=== PATIENT | female | born 1995 | race Caucasian/White ===

== ENCOUNTER 2019-11-02 15:40 | Outpatient (CLI) | payer OTHER, SELFPAY | END 2019-11-02 15:41 | disposition home or self-care (01) | LOC: CHSLAB 15:42 | PROVIDERS: PCP Family Medicine; Visit Provider Family Medicine | DX: J02.9 Acute pharyngitis, unspecified (principal) | CPT/HCPCS: 87081; 87880 ==

== ENCOUNTER 2020-08-23 12:47 | Emergency (ER) | payer OTHER, SELFPAY ==
[2020-08-23 12:50] VITALS: BP 120/76; PULSE 85; RESP 14; TEMP 36.6; O2SAT 100
--- NOTE | 2020-08-23 12:53 | ED.WOUNDLAC ---
HPI - Wound/Laceration General Chief Complaint: Wound/Laceration Stated Complaint: cut finger at work Time Seen by Provider: 08/23/20 13:21 Source: patient Mode of arrival: ambulatory Limitations: no limitations History of Present Illness HPI narrative: 25-year-old right-handed woman comes in today complaining of a laceration to her left pinky finger. She states that happened this morning while she was at work. She was opening boxes with a box knife and slipped, cutting her finger. She denies numbness and decreased range of motion. She does not recall her last tetanus shot. Onset (ago): minute(s) (30) Extremity Location: Left: hand Place: work Patient tetanus UTD: No Context: accidental Associated symptoms: pain Treatments prior to arrival: bandage Related Data Home Medications Medication Instructions Recorded Confirmed benzonatate 200 mg PO TID 08/23/20 08/23/20 buspirone 10 mg PO BID 08/23/20 08/23/20 clotrimazole 1 applic TOPICAL TID 08/23/20 08/23/20 divalproex 500 mg PO BID 08/23/20 08/23/20 famotidine 40 mg PO DAILY 08/23/20 08/23/20 ibuprofen 600 mg PO Q6H PRN 08/23/20 08/23/20 medroxyprogesterone [Depo-Provera] 150 mg IM [id number] 08/23/20 08/23/20 valacyclovir 1,000 mg PO TID 08/23/20 08/23/20 venlafaxine 225 mg PO DAILY 08/23/20 08/23/20 Allergies Allergy/AdvReac Type Severity Reaction Status Date / Time No Known Allergies Allergy Unverified 01/09/18 23:07 Review of Systems Review of Systems: All systems reviewed & are unremarkable except as noted in HPI and below Cardiovascular: Cardiovascular: Denies chest pain and Denies radiating jaw, neck or arm pain Respiratory: Respiratory: Denies cough and Denies dyspnea Gastrointestinal: Gastrointestinal: Denies nausea and Denies vomiting Musculoskeletal: Musculoskeletal: Denies arthralgias and Denies joint swelling Integumentary/Breasts: Skin/Breast: Reports as per HPI, Denies pruritus, Denies erythema and Denies rash Neurologic: Denies focal weakness and Denies numbness Psychiatric: Psychiatric: Reports anxiety Hematologic/Lymphatic: Hematologic/Lymphatic: Denies easy bleeding and Denies easy bruising [facility] Past Medical History Medical History (Updated 08/23/20 @ 19:13 by Yves Hahn MD) Anxiety GERD (gastroesophageal reflux disease) Social History Social History Smoking status: Never smoker Alcohol intake: never Substance use: never Living arrangements: with family Exam Const: General: alert Orientation/consciousness: patient oriented x3 Other: mildly anxious. Eyes: Conjunctivae: conjunctivae normal Pupils: Equal, round and reactive pupils present EOM: EOMs intact bilaterally Resp: Effort & Inspection: normal respiratory effort and not labored Auscultation: clear to auscultation bilaterally, no rales, no rhonchi and no wheezes Cardio: Rate: regular rate Rhythm: regular rhythm Heart sounds: no murmurs Skin: General skin exam: normal color, no jaundice and no pallor Rashes: no rashes Other: 2 cm longitudinal laceration on the pad of the left pinky finger distal to the DIP. Neuro: General: patient oriented x3, moves all extremities, no focal motor deficits and CN's II-XI intact bilaterally Speech: normal speech Gait exam (Neuro): Normal gait present Extrem: General: normal to inspection and no clubbing, cyanosis or edema Psych: Appearance: grossly normal and well kempt Mental Status: mental status grossly normal Affect: normal affect Attitude: cooperative Thought content: Yes Normal thought content present Course Vital Signs Vital signs: Vital Signs Temperature 36.6 C 08/23/20 12:50 Pulse Rate 85 08/23/20 12:50 Respiratory Rate 14 08/23/20 12:50 Blood Pressure 120/76 08/23/20 12:50 Pulse Oximetry 100 08/23/20 12:50 Temperature 36.6 C 08/23/20 12:50 Pulse Rate 85 08/23/20 12:50 Respiratory Rate 14 08/23/20 14:12
[2020-08-23 14:12] VITALS: RESP 14; O2SAT 100
== END 2020-08-23 14:13 | disposition home or self-care (01) ==
PROVIDERS: Emergency Provider Emergency Medicine; PCP Family Medicine
DX: S61.217A Laceration without foreign body of left little finger without damage to nail, initial encounter (principal); W26.0XXA Contact with knife, initial encounter
CPT/HCPCS: 12001; 99282

== ENCOUNTER 2021-04-28 16:10 | Emergency (ER) | payer SELFPAY ==
--- NOTE | 2021-04-28 16:16 | ED.NAVMDI ---
HPI - Nausea/Vomiting/Diarrhea General Chief complaint: Nausea/Vomiting/Diarrhea Stated complaint: Diarrhea, throwing up Time Seen by Provider: 04/28/21 16:16 Source: patient and RN notes reviewed History of Present Illness HPI Narrative: Patient is a 25-year-old female who presents the urgent care with complaints of vomiting, diarrhea and nausea since 2 AM. Patient denies any use of [id number] medication for her symptoms. States that she has been vomiting and having loose stools approximately every hour. States that she now has some lower abdominal discomfort. States that she has been increasing her water intake which is caused her to have increased urination/frequency. However denies of any dysuria, hematuria. Patient states that she does not use control however does use condoms. States that her last menstrual cycle was March 23. Patient has not had any history of . No other acute complaints. No acute distress noted. Patient aware of the plan of care. Some parts of this dictation were generated by voice recognition software and may contain typographical and/or grammatical inaccuracies. Related Data Home Medications Medication Instructions Recorded Confirmed divalproex 500 mg PO DAILY 04/28/21 04/28/21 famotidine 40 mg PO DAILY 04/28/21 04/28/21 Allergies Allergy/AdvReac Type Severity Reaction Status Date / Time No Known Allergies Allergy Verified 04/28/21 16:31 Review of Systems Review of Systems: CONSTITUTIONAL: Denies fever, chills, or sweats. EYES: Denies visual changes, redness, or discharge. ENT: Denies rhinorrhea, congestion, sore throat, or otalgia. CARDIOVASCULAR: Denies chest pain, palpitations, or edema. RESPIRATORY: Denies cough or dyspnea. GASTROINTESTINAL: Reports of mild lower abdominal pain, nausea, vomiting and diarrhea GENITOURINARY: Denies dysuria or hematuria. SKIN: Denies rash or itching. MUSCULOSKELETAL: Denies back pain, joint pain, or myalgia. NEUROLOGIC: Denies headache, numbness, or weakness. All other systems reviewed are negative, except as documented in HPI. PMFSH Comments At the time of my signature, I reviewed and agree with the nursing past medical, surgical, social, and family history. There is no relevant family history pertinent to the patient complaint. Exam Narrative: GENERAL: This is a well-nourished, well-developed patient, in no apparent distress. HEAD: normocephalic, atraumatic. EYES: PERRL. Sclera clear/white. Vision is grossly intact. EARS: External ears normal NOSE: External nose normal with no obvious nasal discharge, nares without redness, no rhinorrhea. THROAT: Mucous membranes moist NECK: Neck supple CARDIOVASCULAR: Regular rate and rhythm without murmurs, gallops, or rubs. RESPIRATORY: Clear to auscultation. Breath sounds equal bilaterally. No wheezes, rales, or rhonchi. GASTROINTESTINAL: Abdomen soft, mild suprapubic tenderness, nondistended. Bowel sounds are hypo-active. SKIN: warm, intact with no suspicious lesions or rash, good texture and turgor. NEURO: awake, alert, and oriented to person, place and time. There were no obvious focal neurologic abnormalities. EXTREMITIES: No clubbing, cyanosis, or edema. BACK: Negative CVA tenderness Course Course Level of Care: Express Care Visit Vital Signs Vital signs: Vital Signs Temperature 99.2 F 04/28/21 16:33 Pulse Rate 94 04/28/21 16:33 Respiratory Rate 16 04/28/21 16:33 Blood Pressure 110/68 04/28/21 16:33 Pulse Oximetry 98 04/28/21 16:33 Temperature 99.2 F 04/28/21 16:33 Pulse Rate 94 04/28/21 16:33 Respiratory Rate 16 04/28/21 16:33 Blood Pressure 110/68 04/28/21 16:33 Pulse Oximetry 98 04/28/21 16:33 Reviewed MDM - Nausea/Vomiting/Diarrhea MDM Narrative Medical decision making narrative: Reviewed lab results with the patient. Patient is aware that she is and the urine analysis was negative for a urinary tract infection. Advised
[2021-04-28 16:33] VITALS: BP 110/68; PULSE 94; RESP 16; TEMP 37.3; O2SAT 98
== END 2021-04-28 17:09 | disposition home or self-care (01) ==
PROVIDERS: Emergency Provider Nurse Practitioner Family; PCP Family Medicine
DX: Z32.01 Encounter for pregnancy test, result positive (principal); O99.350 Diseases of the nervous system complicating pregnancy, unspecified trimester; Z3A.00 Weeks of gestation of pregnancy not specified; G40.909 Epilepsy, unspecified, not intractable, without status epilepticus
CPT/HCPCS: 81003; 81025; 99212; 99213; G0463

== ENCOUNTER 2021-05-30 10:46 | Outpatient (CLI) | payer OTHER, SELFPAY ==
[2021-05-30 11:23] LABS: Basophils Percent Auto 0.4 % (0.2-1.2); Eosinophils Absolute Auto 0.1 K/mm3 (0-0.3); Eosinophils Percent Auto 0.9 % (0-4.4); Hemoglobin 12.4 g/dL (12.0-15.0); Immature Granulocyte Absolute 0.06 K/mm3 (0.00-0.031); Immature Granulocyte Percent A 0.8 % (0-0.5); Lymphocytes Percent Auto 22.1 % (18.3-44.2); Mean Corpuscular HGB Conc 33.5 g/dl (32-36); Mean Corpuscular Hemoglobin 30.8 pg (26-34); Mean Platelet Volume 10.3 fl (7.4-10.4); Monocytes Absolute Auto 0.4 K/mm3 (0.1-0.6); Monocytes Percent Auto 5.2 % (2.6-8.5); Neutrophils Absolute Auto 5.4 K/mm3 (1.3-6.7); Neutrophils Percent Auto 70.6 % (45.5-73.1); Platelet Count Result 185 k/mm3 (150-375); Red Blood Count 4.02 M/mm3 (4.2-5.4); Red Cell Distribution Width 12.7 % (11.5-14.5); White Blood Count 7.7 K/mm3 (4.5-10.0)
[2021-05-30 12:17] LABS: HIV 1/2 Ab P24 Ag Result Negative (Negative)
[2021-05-30 12:41] LABS: Hepatitis B Surface Antigen Negative (Negative); Rubella IgG Antibody 38.2 IU/ML
[2021-05-31 07:54] LABS: Rapid Plasma Reagin Non-Reactive (NonReactive)
[2021-06-06 20:46] LABS: SMA 2.0 RISK VARIANT NOT DETECTED
[2021-06-09 12:46] LABS: CF Result NEGATIVE (NEGATIVE)
== END 2021-05-30 10:47 | disposition home or self-care (01) ==
LOC: ANHLAB 10:48
PROVIDERS: PCP Family Medicine; Visit Provider Obstetrics & Gynecology
DX: N94.89 Other specified conditions associated with female genital organs and menstrual cycle (principal)
CPT/HCPCS: 36415; 81220; 81329; 84702; 85025; 86592; 86644; 86703; 86747; 86762; 86787; 86850; 86900; 86901; 87086; 87088; 87340; G0432

== ENCOUNTER 2021-10-13 13:58 | Outpatient (CLI) | payer OTHER, SELFPAY ==
[2021-10-13 14:16] LABS: Basophils Absolute Auto 0.1 K/mm3 (0.0-0.1); Basophils Percent Auto 0.4 % (0.2-1.2); Eosinophils Absolute Auto 0.1 K/mm3 (0-0.3); Hematocrit 35.1 % (37.0-47.0); Hemoglobin 11.5 g/dL (12.0-15.0); Immature Granulocyte Absolute 0.13 K/mm3 (0.00-0.031); Immature Granulocyte Percent A 0.9 % (0-0.5); Lymphocytes Absolute Auto 2.02 K/mm3 (0.9-3.2); Lymphocytes Percent Auto 14.3 % (18.3-44.2); Mean Corpuscular HGB Conc 32.8 g/dl (32-36); Mean Corpuscular Hemoglobin 30.6 pg (26-34); Mean Corpuscular Volume 93.4 fl (80-100); Mean Platelet Volume 10.1 fl (7.4-10.4); Monocytes Absolute Auto 0.9 K/mm3 (0.1-0.6); Monocytes Percent Auto 6.4 % (2.6-8.5); Neutrophils Absolute Auto 10.9 K/mm3 (1.3-6.7); Platelet Count Result 197 k/mm3 (150-375); Red Blood Count 3.76 M/mm3 (4.2-5.4); Red Cell Distribution Width 13.4 % (11.5-14.5); White Blood Count 14.1 K/mm3 (4.5-10.0)
[2021-10-13 15:07] LABS: HIV 1/2 Ab P24 Ag Result Negative (Negative)
== END 2021-10-13 13:59 | disposition home or self-care (01) ==
LOC: ANHLAB 14:01
PROVIDERS: PCP Family Medicine; Visit Provider Obstetrics & Gynecology
DX: Z34.90 Encounter for supervision of normal pregnancy, unspecified, unspecified trimester (principal)
CPT/HCPCS: 36415; 85025; 86703; G0432

== ENCOUNTER 2021-10-17 12:00 | Outpatient (CLI) | payer OTHER, SELFPAY ==
[2021-10-17 13:30] LABS: Glucose 1 Hour PP 50gm Dose 156 mg/dL
== END 2021-10-17 12:01 | disposition home or self-care (01) ==
LOC: ANHLAB 12:01
PROVIDERS: PCP Family Medicine; Visit Provider Obstetrics & Gynecology
DX: Z34.90 Encounter for supervision of normal pregnancy, unspecified, unspecified trimester (principal); Z3A.00 Weeks of gestation of pregnancy not specified
CPT/HCPCS: 36415; 82947

== ENCOUNTER 2021-11-06 07:07 | Outpatient (CLI) | payer OTHER, SELFPAY ==
[2021-11-06 07:36] LABS: Glucose Fasting Gestational 89 mg/dL (>/=95)
[2021-11-06 10:04] LABS: Glucose 1 Hour Gest 163 mg/dL (>/=180)
[2021-11-06 10:14] LABS: Glucose 2 Hour Gest 87 mg/dL (>/= 155)
[2021-11-06 11:03] LABS: Glucose 3 Hour Gest 70 mg/dL (>/=140)
== END 2021-11-06 07:08 | disposition home or self-care (01) ==
PROVIDERS: PCP Family Medicine; Visit Provider Obstetrics & Gynecology
DX: O99.810 Abnormal glucose complicating pregnancy (principal); Z3A.00 Weeks of gestation of pregnancy not specified
CPT/HCPCS: 36415; 82951; 82952

== ENCOUNTER 2021-11-21 21:34 | Observation (INO) | payer OTHER, SELFPAY ==
--- NOTE | ~2021-11-21 | XR_ITS ---
EXAMINATION: XR chest 1V portable DATE: 11/21/2021 23:56 INDICATION: Shortness of breath and fever TECHNIQUE: frontal view of the chest was obtained. COMPARISON: Chest radiograph dated 03/24/2019 FINDINGS: Mild opacities at the left lung base with blunting at the costophrenic angle consistent with small le ft pleural effusion and associated basilar atelectasis or pneumonia. Right lung is clear. No pulmonar y edema, pneumothorax or right-sided pleural effusion. The cardiomediastinal silhouette is normal. Vi sualized bones and soft tissues are unremarkable. IMPRESSION: 1. Small left pleural effusion with mild left basilar atelectasis versus pneumonia. Reviewed, dictated and finalized at location A. IMPRESSION: 1. Small left pleural effusion with mild left basilar atelectasis versus pneumo shelia.
[2021-11-21 21:47] VITALS: BP 123/74; PULSE 115; RESP 20; TEMP 37.2; O2SAT 97
--- NOTE | 2021-11-21 23:10 | ED.URI ---
HPI - URI/Sore Throat General Chief Complaint: Shortness of Breath/Dyspnea Stated Complaint: coughing, sob Time Seen by Provider: 11/21/21 22:51 Source: patient Mode of arrival: ambulatory Limitations: no limitations History of Present Illness HPI Narrative: This is a 26 year old about 34 weeks that presents to the ER for cold symptoms present today. Reports rhinorrhea, low grade fevers, cough. Also reports some nausea and vomiting. Reports some feelings of shortness of breath. Denies chest pain or lower extremity edema. Related Data Home Medications Medication Instructions Recorded Confirmed famotidine 40 mg tablet 40 mg PO DAILY 04/28/21 11/14/21 Allergies Allergy/AdvReac Type Severity Reaction Status Date / Time No Known Allergies Allergy Verified 11/21/21 21:51 Review of Systems Review of Systems: CONSTITUTIONAL: Denies fever ENT: Reports rhinorrhea, congestion CARDIOVASCULAR: Denies chest pain, or edema. RESPIRATORY: Reports cough and dyspnea. GASTROINTESTINAL: Reports nausea and vomiting. Denies abdominal pain All systems reviewed & are unremarkable except as noted in HPI and below PMFSH Past Medical History Medical History (Updated 11/22/21 @ 02:16 by Pretty Fagan PA-C) Abnormal glucose tolerance in Anxiety Bronchitis Depression GERD (gastroesophageal reflux disease) Migraines Seizures Suppression of menstruation Surgical History Surgical History History of ovarian cystectomy 03/27/14 lscope rt ovarian cystectomy--teratoma Family History Family History Father Hypertension Mother Cervical cancer Grandparent Cervical cancer maternal grandmother Social History Social History (Updated 05/30/21 @ 09:02 by ABIEL Palacio) Smoking status: Never smoker Alcohol intake: never Substance use: current Substance use type: marijuana Other substance usage details: 3 x daily for appetite Additional living arrangements comments: mother 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 HEAD: Normocephalic, atraumatic. EYES: EOMI. ENT: Nares clear, no rhinorrhea or epistaxis. Mucous membranes moist. Oropharynx without tonsillar hypertrophy exudate or other lesions. Bilateral TMs pearly richards non-bulging NECK: Supple. No adenopathy or masses. CHEST: Clear to auscultation. No respiratory distress. No wheezes rales or rhonchi HEART: Regular rate and rhythm. No murmur heard. Normal peripheral pulses. ABDOMEN: Gravid, nontender, normal active bowel sounds. EXTREMITIES: Normal range of motion. No edema. SKIN: Warm, dry, no rash. NEURO: No focal deficits. Alert and oriented x3. PSYCH: Normal mood and affect Course Consultations Consultation #1: Spoke with patient's OB about work-up. Patient will be admitted for further management. Date: 11/22/21 Vital Signs Vital signs: Vital Signs Temperature 98.9 F 11/21/21 21:47 Pulse Rate 115 H 11/21/21 21:47 Respiratory Rate 20 11/21/21 21:47 Blood Pressure 123/74 11/21/21 21:47 Pulse Oximetry 97 11/21/21 21:47 Oxygen Delivery Room Air 11/21/21 21:47 Temperature 98.9 F 11/21/21 21:47 Pulse Rate 115 H 11/21/21 21:47 Respiratory Rate 20 11/21/21 21:47 Blood Pressure 123/74 11/21/21 21:47 Pulse Oximetry 97 11/21/21 21:47 Oxygen Delivery Room Air 11/21/21 21:47 MDM - URI/Sore Throat MDM Narrative Medical decision making narrative: Patient presents to the emergency department for cold symptoms present today. She is afebrile and nontoxic-appearing. Mildly tachycardic upon arrival, this improved with IV fluids. CBC with leukocytosis
[2021-11-21 23:34] LABS: Basophils Absolute Auto 0.1 K/mm3 (0.0-0.1); Basophils Percent Auto 0.3 % (0.2-1.2); Eosinophils Absolute Auto 0.1 K/mm3 (0-0.3); Eosinophils Percent Auto 0.5 % (0-4.4); Hematocrit 32.7 % (37.0-47.0); Hemoglobin 10.8 g/dL (12.0-15.0); Immature Granulocyte Absolute 0.26 K/mm3 (0.00-0.031); Immature Granulocyte Percent A 1.7 % (0-0.5); Lymphocytes Absolute Auto 0.54 K/mm3 (0.9-3.2); Lymphocytes Percent Auto 3.6 % (18.3-44.2); Mean Corpuscular Volume 90.8 fl (80-100); Mean Platelet Volume 10.5 fl (7.4-10.4); Monocytes Absolute Auto 0.7 K/mm3 (0.1-0.6); Monocytes Percent Auto 4.5 % (2.6-8.5); Neutrophils Absolute Auto 13.3 K/mm3 (1.3-6.7); Neutrophils Percent Auto 89.4 % (45.5-73.1); Platelet Count Result 153 k/mm3 (150-375); Red Cell Distribution Width 13.2 % (11.5-14.5); White Blood Count 14.9 K/mm3 (4.5-10.0)
[2021-11-21 23:43] LABS: INR 1.2; Prothrombin Time 14.3 Seconds (11.1-14.7)
[2021-11-21 23:44] LABS: Partial Thromboplastin Time 30.2 SECONDS (22.3-36.8)
[2021-11-21 23:44] LABS: Appearance Urine Clear (Clear); Bilirubin Urine 1+ (Negative); Blood Urine Negative (Negative); Color Urine Yellow (Yellow); Glucose Urine UA Negative (Negative); Ketones Urine 4+ mg/dL (Negative); Leukocyte Esterase Ur Negative LEU/UL (Negative); Nitrate Urine Negative (Negative); Protein Urine 1+ mg/dL (Negative); pH Urine 6.5 (5.0-9.0)
[2021-11-21 23:45] LABS: Lipase 63 U/L (23-300)
[2021-11-21 23:50] LABS: Add Urine Microscopic? YES
[2021-11-21 23:51] LABS: RBC Urine 0-2 /hpf (0-2); Squamous Epithelial Cell Urine Few /hpf (Few); WBC Urine 0-3 /hpf (0-3)
[2021-11-21 23:52] LABS: Bacteria Urine Trace /hpf
[2021-11-21 23:52] LABS: Alanine Aminotransferase 17 U/L (6-35); Albumin Level 3.6 g/dL (3.5-5.1); Alkaline Phosphatase 188 U/L (38-126); Anion Gap 12 mmol/L (8-16); Aspartate Amino Transferase 29 U/L (14-36); Bilirubin,Total 0.6 mg/dL (0.2-1.3); Blood Urea Nitrogen 4 mg/dL (7-17); Calcium 8.8 mg/dL (8.4-10.2); Carbon Dioxide 16 mmol/L (22-30); Chloride 106 mmol/L (98-107); Estimated Glomerular Filt Rate > 60; Glucose 86 mg/dL (65-110); Potassium 2.7 mmol/L (3.4-5.0); Sodium 134 mmol/L (137-145)
[2021-11-22 00:10] LABS: Influenza A QL RT-PCR Negative (Negative); Influenza B QL RT-PCR Negative (Negative); SARS-CoV-2 RNA PCR Negative
[2021-11-22] MEDS: SODIUM CHLORIDE 0.9% IV 1,000 ML 999 ML IV CONT (00:40)
[2021-11-22] MEDS: ONDANSETRON INJ 4 MG/2 ML VIAL IV PUSH (00:41)
--- NOTE | 2021-11-22 00:50 | ECG_ITS ---
Measurements Intervals [place] Rate: 101 P: 7 AK: 137 QRS: 20 QRSD: 79 T: 41 QT: 352 QTc: 458 Interpretive Statements SINUS TACHYCARDIA POSSIBLE LEFT ATRIAL ENLARGEMENT BASELINE ARTIFACT- II, III BORDERLINE ECG NO PREVIOUS ECG AVAILABLE FOR COMPARISON Electronically Signed On 11-22-2021 7:29:02 CDT by Josh Andres D.O.
[2021-11-22] MEDS: POTASSIUM CHLORIDE 20 MEQ TABLET 40 MEQ PO (00:58)
[2021-11-22 01:40] LABS: Lactic Acid Reflex 0.9 mmol/L (0.7-2.0)
[2021-11-22 01:44] LABS: Magnesium 1.5 mg/dL (1.6-2.3)
[2021-11-22 02:50] VITALS: PULSE 114; RESP 20; O2SAT 98
--- NOTE | 2021-11-22 02:57 | ADMGEN ---
This patient, Calixto Augustin, was admitted to 2 Medical Room [facility] @0256. Patient/family oriented to hospital policies and general routines including ID bracelet, bed and alarms, visiting hours, pain management, procedures, bathroom and other care routines, personal items, smoking policy, room service/diet, and visiting hours. Information on how to activate the Rapid Response Team has been discussed. Patient/Family are encouraged to report perceived risks to care and to ask questions if they do not understand what they are told or what they should do.
[2021-11-22] MEDS: SODIUM CHLORIDE 0.9% IV 1,000 ML 125 ML IV CONT (03:12)
[2021-11-22 03:30] VITALS: BP 119/71; PULSE 108; RESP 16; TEMP 36.8; O2SAT 100; BMI 35.0
[2021-11-22 04:37] VITALS: BP 117/66; PULSE 117; RESP 16; TEMP 36.6; O2SAT 98
[2021-11-22] MEDS: POTASSIUM CHLORIDE 20 MEQ TABLET.ER 40 MEQ PO (05:52)
[2021-11-22] MEDS: MAGNESIUM SULF 1 GM/D5W 100 ML 1 GM/100 ML BAG IVPB (05:52)
[2021-11-22 08:00] VITALS: PULSE 107
[2021-11-22] MEDS: ACETAMINOPHEN 500 MG TABLET 1000 MG PO (08:16)
--- NOTE | 2021-11-22 08:35 | PM.IMHP ---
H&P: HPI History of Present Illness Date/Time: 11/22/21 08:35 Chief Complaint: cough Narrative: Calixto is a 26yo at 34.6wks that presented to the ER for cold symptoms. She reports rhinorrhea, low grade fevers, cough that all started yesterday. She took some tylenol cold which helped, but then she started having nausea and vomiting x4. Reports some feelings of shortness of breath but denies chest pain or lower extremity edema. She was negative for covid and influenza but had an xray concerning for left lung pneumonia. She was also found to have severe dehydration with 4+ ketones and hypokalemia of 2.7. Since getting fluids, she feels much better this morning. No N/V overnight. She reports good movement, no contractions, leakage of fluid or vaginal bleeding. She did have a headache this morning, but that has resolved with Tylenol. She would like to go home today. Her has been complicated by: - Obesity - H/o seizures as a child; none x 6 years -- now w/ migraines - Marijuana use - Elevated 1 hour glucose; normal 3 hour - Mild anemia Review of Systems Constitutional: Constitutional: Denies chills and Reports headache(s) Eyes: Eyes: Denies change in vision Cardiovascular: Cardiovascular: Denies chest pain and Denies palpitations Respiratory: Respiratory: Reports cough and Reports dyspnea on exertion Gastrointestinal: Gastrointestinal: Denies abdominal pain, Denies nausea and Denies vomiting Genitourinary: Genitourinary: Denies abnormal vaginal bleeding, Denies dysuria, Denies pelvic pain and Denies vaginal discharge [facility] Past Medical History Medical History (Updated 11/22/21 @ 02:16 by Pretty Fagan PA-C) Abnormal glucose tolerance in Anxiety Bronchitis Depression GERD (gastroesophageal reflux disease) Migraines Seizures Suppression of menstruation Surgical History Surgical History History of ovarian cystectomy 03/27/14 lscope rt ovarian cystectomy--teratoma Family History Family History Father Hypertension Mother Cervical cancer Grandparent Cervical cancer maternal grandmother Social History Social History (Updated 05/30/21 @ 09:02 by Saloni Nguyen [facility]) Smoking status: Never smoker Alcohol intake: never Substance use: current Substance use type: marijuana Other substance usage details: 3 x daily for appetite Additional living arrangements comments: mother 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 Gender identity (if verbalized by the patient): Female Sexual Orientation (if Verbalized by the Patient): Straight or Heterosexual Spiritual care concerns: No Meds Home Medications and Allergies Home Medications Medication Instructions Recorded Confirmed Type famotidine 40 mg tablet 40 mg PO DAILY 04/28/21 11/22/21 History vitamins-iron fumarate 65 1 tablet PO DAILY #30 tabs 06/16/21 11/22/21 Rx mg iron-folic acid 1 mg tablet acetaminophen 500 mg tablet 1,000 mg PO Q6H PRN Pain #40 tabs 11/22/21 Rx albuterol sulfate 90 mcg/actuation 1 inh inhalation QID PRN shortness 11/22/21 Rx aerosol inhaler (ProAir HFA) of breath or wheezing #8.5 grams azithromycin 250 mg tablet 250 mg PO DAILY 4 days #4 tabs 11/22/21 Rx cefpodoxime 200 mg tablet 200 mg PO Q12H 4 days #8 tabs 11/22/21 Rx Allergies Allergy/AdvReac Type Severity Reaction Status Date / Time No Known Allergies Allergy Verified 11/22/21 02:59 Vital Signs Vital Signs - 24 hr 11/21/21 21:47 11/22/21 03:30 11/22/21 02:50 Temperature 98.9 F 98.3 F Pulse Rate 115 H 108 H 114 H Respiratory Rate 20 16 20 Blood Pressure 123/74 119/71 Pulse Oximetry 97 100 98 Oxygen Delivery Room Air 11/22/21 04:37 Temperature 97.9 F Pulse Rate 117 H Respiratory Rate 16 Blood Pressure 117/66 Pulse Oximetry 98 Oxygen Delivery Exam Co
[2021-11-22 09:31] VITALS: BP 122/82; PULSE 117
[2021-11-22 10:29] LABS: Anion Gap 8 mmol/L (8-16); Calcium 8.5 mg/dL (8.4-10.2); Carbon Dioxide 16 mmol/L (22-30); Chloride 109 mmol/L (98-107); Estimated CRCL calculation 169 ml/min; Estimated Glomerular Filt Rate > 60; Glucose 81 mg/dL (65-110); Potassium 3.4 mmol/L (3.4-5.0); Sodium 133 mmol/L (137-145)
[2021-11-22 10:34] LABS: Blood Urea Nitrogen < 2 mg/dL (7-17)
== END 2021-11-22 12:30 | disposition home or self-care (01) ==
LOC: ANHED 11-22 00:06 → ANH2MED 11-22 01:30
PROVIDERS: Physician Assistant; Admitting Provider Obstetrics & Gynecology; Emergency Provider Emergency Medicine; PCP Family Medicine; Visit Provider Obstetrics & Gynecology
DX: O99.513 Diseases of the respiratory system complicating pregnancy, third trimester (principal); J18.9 Pneumonia, unspecified organism; O99.283 Endocrine, nutritional and metabolic diseases complicating pregnancy, third trimester; E87.6 Hypokalemia; O21.0 Mild hyperemesis gravidarum; Z3A.34 34 weeks gestation of pregnancy; F12.90 Cannabis use, unspecified, uncomplicated; Z20.822 Contact with and (suspected) exposure to COVID-19
CPT/HCPCS: 36415; 59025; 71045; 80048; 80053; 81001; 83605; 83690; 83735; 85025; 85610; 85730; 87040; 87502; 93005; 96361; 96365; 96367; 96375; 99285; A9270; C9803; G0378; G0379; J0456; J0696; J2405; J3475; J7030; U0003; U0005

== ENCOUNTER 2021-12-23 21:53 | Observation (INO) | payer OTHER, SELFPAY ==
[2021-12-24] VITALS: BMI 36.0
--- NOTE | 2021-12-24 | OBADM ---
This patient, Calixto Augustin, admitted to the OB room Labor/Delivery/Recovery 102 for observation. Patient/family oriented to hospital policies and general routines including ID bracelet, bed and alarms, visiting hours, pain management, procedures, bathroom and other care routines, personal items, smoking policy, room service/diet, and visiting hours. Patient/Family are encouraged to report perceived risks to care and to ask questions if they do not understand what they are told or what they should do.
--- NOTE | 2021-12-25 16:07 | PM.OBTRLD ---
OB - Triage/Final Diagnosis Visit Information Reason for evaluation: threatened labor Comments/Additional reasons for admission: I have assessed the risk for this patient, Devinjuhi Hansen Charli, and determined that she would benefit from observation care.
== END 2021-12-24 00:20 | disposition home or self-care (01) ==
PROVIDERS: Admitting Provider Obstetrics & Gynecology; PCP Family Medicine; Visit Provider Obstetrics & Gynecology
DX: O47.1 False labor at or after 37 completed weeks of gestation (principal); Z3A.39 39 weeks gestation of pregnancy
CPT/HCPCS: 84112; G0378; G0379

== ENCOUNTER 2021-12-24 02:28 | Inpatient (IN) | payer OTHER, SELFPAY ==
[2021-12-24] VITALS (93 sets, daily range): BP systolic 129–166; BP diastolic 68–129; PULSE 53–202; RESP 16–18; TEMP 36.2–37; O2SAT 91–100; BMI 36.0
[2021-12-24] MEDS: LACTATED RINGERS 1,000 ML 125 ML IV CONT ×2 (02:49→03:31)
--- NOTE | 2021-12-24 02:53 | LDADM ---
This patient, Calixto Augustin, was admitted to Labor/Delivery/Recovery 106 on 12/24/21 at 02:28. Plans for labor, pain management and were discussed with patient. Patient/family oriented to hospital policies and general routines including ID bracelet, bed and alarms, visiting hours, pain management, procedures, bathroom and other care routines, personal items, smoking policy, room service/diet and guest tray routines, security routines, and visiting hours. Patient/Family are encouraged to report perceived risks to care and to ask questions if they do not understand what they are told or what they should do. See OBIX for further documentation.
[2021-12-24 02:55] LABS: Basophils Absolute Auto 0.1 K/mm3 (0.0-0.1); Basophils Percent Auto 0.4 % (0.2-1.2); Eosinophils Absolute Auto 0.1 K/mm3 (0-0.3); Eosinophils Percent Auto 0.5 % (0-4.4); Hematocrit 35.8 % (37.0-47.0); Hemoglobin 11.8 g/dL (12.0-15.0); Immature Granulocyte Absolute 0.15 K/mm3 (0.00-0.031); Immature Granulocyte Percent A 1.1 % (0-0.5); Lymphocytes Absolute Auto 2.13 K/mm3 (0.9-3.2); Mean Corpuscular Hemoglobin 30.5 pg (26-34); Mean Corpuscular Volume 92.5 fl (80-100); Mean Platelet Volume 11.4 fl (7.4-10.4); Monocytes Absolute Auto 0.9 K/mm3 (0.1-0.6); Monocytes Percent Auto 6.9 % (2.6-8.5); Neutrophils Percent Auto 75.1 % (45.5-73.1); Platelet Count Result 208 k/mm3 (150-375); Red Blood Count 3.87 M/mm3 (4.2-5.4); Red Cell Distribution Width 13.8 % (11.5-14.5); White Blood Count 13.3 K/mm3 (4.5-10.0)
--- NOTE | 2021-12-24 03:06 | WPDANESEPP ---
Anes - Eval Pre Procedure Procedure: labor epidural Date/Time: 12/24/21 03:06 Pre Op Diagnosis: Contractions Patient Data Age: 26 Gender: F Height: 1.55 m Weight: 86.5 kg Last Vital Signs Temp 36.6 C 12/24/21 02:58 Pulse 79 12/24/21 03:01 BP 160/100 H 12/24/21 03:01 Pulse Ox 100 12/24/21 03:05 O2 Del Method Room Air 12/24/21 02:53 Allergies Allergy/AdvReac Type Severity Reaction Status Date / Time No Known Allergies Allergy Verified 12/16/21 14:42 Home Medications Medication Instructions Recorded Confirmed Type famotidine 40 mg tablet 40 mg PO DAILY 04/28/21 12/16/21 History vitamins-iron fumarate 65 1 tablet PO DAILY #30 tabs 06/16/21 12/16/21 Rx mg iron-folic acid 1 mg tablet albuterol sulfate 90 mcg/actuation 1 inh inhalation QID PRN shortness 11/22/21 12/16/21 Rx aerosol inhaler (ProAir HFA) of breath or wheezing #8.5 grams Breast pump #1 ea 12/01/21 12/16/21 Rx Laboratory Tests 12/24/21 12/24/21 02:47 02:47 WBC 13.3 K/mm3 H K/mm3 (4.5-10.0) RBC 3.87 M/mm3 L M/mm3 (4.2-5.4) Hgb 11.8 g/dL L g/dL (12.0-15.0) Hct 35.8 % L % (37.0-47.0) MCV 92.5 fl fl (80-100) MCH 30.5 pg pg (26-34) MCHC 33.0 g/dl g/dl (32-36) RDW 13.8 % % (11.5-14.5) Plt Count 208 k/mm3 k/mm3 (150-375) MPV 11.4 fl H fl (7.4-10.4) Immature Gran % (Auto) 1.1 % H % (0-0.5) Neut % (Auto) 75.1 % H % (45.5-73.1) Lymph % (Auto) 16.0 % L % (18.3-44.2) [place] % (Auto) 6.9 % % (2.6-8.5) Eos % (Auto) 0.5 % % (0-4.4) Baso % (Auto) 0.4 % % (0.2-1.2) Lymph # (Auto) 2.13 K/mm3 K/mm3 (0.9-3.2) [place] # (Auto) 0.9 K/mm3 H K/mm3 (0.1-0.6) Eos # (Auto) 0.1 K/mm3 K/mm3 (0-0.3) Baso # (Auto) 0.1 K/mm3 K/mm3 (0.0-0.1) Abs Immat Gran (auto) 0.15 K/mm3 H K/mm3 (0.00-0.031) Absolute Neuts (auto) 10.0 K/mm3 H K/mm3 (1.3-6.7) Absolute Nucleated RBC 0.0 K/mm3 K/mm3 (0.0-0.012) Nucleated RBC % 0.0 % % (0.0-0.2) RPR Pending Patient hx anesthesia problems: none Family hx anesthesia problems: none Results Review: All pre-operative results and documents have been reviewed as part of the pre-operative evaluation. [facility] Past Medical History Medical History Abnormal glucose tolerance in Anxiety Bronchitis Depression GERD (gastroesophageal reflux disease) Migraines Seizures Suppression of menstruation Surgical History Surgical History History of ovarian cystectomy 03/27/14 lscope rt ovarian cystectomy--teratoma Family History Family History Father Hypertension Mother Cervical cancer Grandparent Cervical cancer maternal grandmother Diabetes mellitus Social History Social History Smoking status: Never smoker Second hand tobacco smoke exposure: Yes Alcohol intake: never Substance use: current Substance use type: marijuana Other substance usage details: 3 x daily for appetite Last use: last time 12/07/21 Additional living arrangements comments: mother 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
[2021-12-24] MEDS: CALCIUM CARBONATE (TUMS) 500 MG (200 MG ELEMENTAL) PO (05:08)
--- NOTE | 2021-12-24 07:49 | WPDHPUPDATE1 ---
History and Physical Update Update Date/Time: 12/24/21 07:49 History and Physical has been reviewed, including an updated exam of the patient. There are NO changes in the patient's condition. Risks, benefits, and alternatives have been discussed and questions answered. Patient agrees to proceed with procedure.
--- NOTE | 2021-12-24 07:49 | WPDOBADMIT ---
Obstetrics - Admit Note Admission Note: record reviewed. No pertinent additions to the history and/or any subsequent changes in the physical findings that are not consistent with the expected course of the were found. Additions to the history and/or subsequent changes in the physical findings follow. None.
[2021-12-24] MEDS: LIDOCAINE HCL 1% PF 30 ML VIAL (08:15)
--- NOTE | 2021-12-24 08:25 | PM.OBPRVD ---
OB - Delivery Note Procedure Intrapartal Events: Other ( Meconium-stained fluid) Delivery augmentation: Rupture of Membranes Delivery monitor: External FHT and External Uterine Route of delivery: Episiotomy description: None Laceration Description: Perineal - 2nd Degree Delivery repair: chromic Specimen: Yes (Placenta) Quantitative Blood Loss (ml): 400 Anesthesia type: Epidural Disposition: Floor Complications: none Narrative: patient prepped draped usual manner for this procedure. Maternal expulsive efforts readily delivered vertex over intact perineum. Rest of baby was delivered without difficulty cord was clamped and cut and baby was passed off the operative field. Placenta delivered spontaneously. Vaginal laceration was noted and approximated using 2-0 chromic in a running interlocking manner with good approximation hemostasis noted. Uterus well contracted there was no significant bleeding and no other lacerations or tears which were bleeding. At this point the procedure was considered terminated. [place] Baby Weeks of gestation at delivery: 39 Infant gender: Male Weight (pounds): 8 Weight (ounces): 0 presentation: vertex Placenta delivery description: Spontaneous Cord Vessel Description: 3 Vessels score one minute: 8 score five minutes: 9 AMG Delivery Billing Delivery Delivery: Delivery Charge
[2021-12-24] MEDS: IBUPROFEN 600 MG TABLET PO ×3 (09:47→23:30)
[2021-12-24] MEDS: WITCH HAZEL 40 PADS 1 PAD TOPICAL (09:48)
[2021-12-24] MEDS: BENZOCAINE 20% AER SPR (*SP) 56 GM CAN 1 SPRAY TOPICAL (09:48)
--- NOTE | 2021-12-24 11:30 | OBPPTRN ---
Patient transferred to post room #292 via wheelchair. Support person present. Oriented to unit, room, information board, rooming in, admission packet and security measures. Patient verbalizes understanding.
[2021-12-24] MEDS: MULTIVIT/MIN/PREN/FOL AC/IRON TABLET 1 TAB PO (15:57)
[2021-12-24] MEDS: FAMOTIDINE 20 MG TABLET 40 MG PO (15:57)
[2021-12-25 03:30] VITALS: BP 146/95; PULSE 81; RESP 20; TEMP 36.7
[2021-12-25] MEDS: DIBUCAINE 1% OINTMENT 30 GM TUBE 1 APPLIC TOPICAL (03:55)
[2021-12-25] MEDS: LANOLIN (LANSINOH) 7.5 GM CREAM 1 APPLIC TOPICAL (03:55)
[2021-12-25 05:16] LABS: Hematocrit 30.9 % (37.0-47.0); Hemoglobin 10.1 g/dL (12.0-15.0)
[2021-12-25] MEDS: IBUPROFEN 600 MG TABLET PO ×3 (06:38→19:50)
[2021-12-25 07:40] VITALS: BP 143/87; PULSE 83; RESP 18; TEMP 36.2; O2SAT 99
[2021-12-25 07:57] LABS: Rapid Plasma Reagin Non-Reactive (NonReactive)
--- NOTE | 2021-12-25 08:01 | WPDANLDPN2 ---
Anes-Prog Note L&D Date/Time: 12/25/21 08:01 Comfortable throughout: labor and delivery Neuraxial method: epidural Epidural/Spinal procedure site: clean & non-tender Neuro status: Neuro function grossly intact. Cardiovascular status: normal Respiratory status: normal Airway patency: baseline Mental status: baseline Post-Op hydration status: normal Vital Signs: Last Vital Signs Temp 98.1 F 12/25/21 03:30 Pulse 81 12/25/21 03:30 Resp 20 12/25/21 03:30 BP 146/95 H 12/25/21 03:30 Pulse Ox 100 12/24/21 23:00 O2 Del Method Room Air 12/25/21 06:40 Pain score (VAS): 0/10 I/O: Intake & Output 12/24/21 12/25/21 12/25/21 23:59 07:59 15:59 Intake Total 240 Balance 240 Post-procedural complaints: none Patient feedback: Patient satisfied with anesthetic care.
--- NOTE | 2021-12-25 10:18 | PM.OBDSVD ---
DS: Admitting Diagnosis Discharge Date 12/26/2021 Admitting Diagnosis OB - DS: Summary OB Procedures : None OB Procedures Intrapartum: Spontaneous Vag Delivery OB Procedures: : None Time Spent with Patient Time attestation: Total time spent providing and/or coordinating discharge services: DS: Data Data Completed and Pending Pending studies at discharge: Pending at discharge 12/24/21 08:10 Surgical [PTH] Routine Labs on day of discharge: Labs from last 24 hours 12/25/21 12/24/21 03:31 02:47 Hgb 10.1 L Hct 30.9 L RPR Non-reactive Discharge Plan Discharge Discharging Clinician: Navin Ramos Patient Disposition: Home, Self-Care Activity: as tolerated Diet: as tolerated Patient Instructions: Antibiotic Form Stand Alone Forms: General Discharge Information Follow-up/Referrals: Navin Ramos MD [Physician] - 3 Weeks Discharge Medications: New ibuprofen 600 mg Tablet 600 mg PO Q6H PRN (Reason: Cramping) Qty: 30 0RF Continued famotidine 40 mg tablet 40 mg PO DAILY vit-iron fum-folic ac 65 mg iron- 1 mg tablet 1 tablet PO DAILY Qty: 30 3RF albuterol sulfate [ProAir HFA] 90 mcg/actuation HFA aerosol inhaler 1 inh inhalation QID PRN (Reason: shortness of breath or wheezing) Qty: 8.5 3RF (DME) Breast pump See Rx Instructions .Route .MEDSUPPLY Qty: 1 0RF Rx Instructions: As directed Date of admission: 12/24/21 02:28 Primary Care Provider: Rick More Admitting Provider: Navin Ramos Attending physician on admission: Navin Ramos Condition: Stable
[2021-12-25] MEDS: FAMOTIDINE 20 MG TABLET 40 MG PO (11:19)
[2021-12-25] MEDS: MULTIVIT/MIN/PREN/FOL AC/IRON TABLET 1 TAB PO (11:20)
[2021-12-25] MEDS: BENZOCAINE 20% AER SPR (*SP) 56 GM CAN 1 SPRAY TOPICAL (11:23)
[2021-12-25] MEDS: WITCH HAZEL 40 PADS 1 PAD TOPICAL (11:23)
--- NOTE | 2021-12-25 13:53 | PC.NURSE ---
[id number] Introductions were made, then consulted with patient to assess needs related to . Mother led the conversation with her?plans to feed?her infant and the?experience so far stating she has soreness on her left side pointing to her breast. Resources provided for inpatient and outpatient services using a resource guide and mom/baby guide. Mother voiced understanding of information and will call if there is a request for assistance. [phone] Consulted with patient to assess needs related to . Mother works well with her . Reviewed working with , breast, nipples and how to protect the nipples with an optimal deep latch, good positioning, and good hand washing. Encouraged understanding the benefits of skin to skin, responding to feeding cues, frequencies of feeding 8-12 times in 24 hours (approximately 2-3 hours), duration of feedings, milk production, intake/output feeding sheet and signs of adequate intake encouraging swallowing at the breast. Reviewed positioning and alignment, supporting breast, off-centered (asymmetrical latch) and leading with the chin with big, open, wide gape. Infant latched optimally to the left breast in football position. Education given to mother of how to visualize suck/swallow ratios, listening for ka sounds, and stimulating if needed for infant drinking at the breast. Infant was able to maintain latch without discomfort to mother. Nipple care reviewed with optimal latch and good positioning, to have clean hands when touching the nipple/breast to prevent infection. Resources used to facilitate learning were used from the mom and baby guide. Mother voiced understanding of the education shared, calling for assistance if the does not latch, difficulty waking infant to breastfeed, or if there is discomfort with .
[2021-12-25] MEDS: DOCUSATE SODIUM 100 MG CAPSULE PO (17:03)
[2021-12-25 17:05] VITALS: BP 139/85; PULSE 92; RESP 18; TEMP 36.8; O2SAT 100
[2021-12-25 19:50] VITALS: BP 143/93; PULSE 103; RESP 20; TEMP 36.9
--- NOTE | 2021-12-25 22:45 | PC.NURSE ---
Patient instructed to view the discharge video Mother & Baby Care, The First Two Weeks . Patient was given the opportunity and encouraged to ask questions. Patient verbalized understanding of information shared and has been given the mother/baby guide for home reference.
[2021-12-26] MEDS: DOCUSATE SODIUM 100 MG CAPSULE PO ×2 (03:50→08:19)
[2021-12-26] MEDS: IBUPROFEN 600 MG TABLET PO (03:52)
[2021-12-26] MEDS: FAMOTIDINE 20 MG TABLET 40 MG PO (08:19)
[2021-12-26] MEDS: ACETAMINOPHEN 325 MG TABLET 650 MG PO (08:20)
[2021-12-26] MEDS: MULTIVIT/MIN/PREN/FOL AC/IRON TABLET 1 TAB PO (08:20)
[2021-12-26] MEDS: TETANUS,DIPHTHERIA,AC PERTUSSIS ADULT (0.5 ML) BOOSTRIX IM (08:22)
[2021-12-26 09:05] VITALS: BP 145/93; PULSE 88; RESP 18; TEMP 36.3; O2SAT 100
[2021-12-26] MEDS: LANOLIN (LANSINOH) 7.5 GM CREAM 1 APPLIC TOPICAL (12:44)
--- NOTE | 2022-01-08 09:34 | PM.OBDSVD ---
DS: Admitting Diagnosis Discharge Date 12/26/21 Admitting Diagnosis OB - DS: Summary OB Procedures : None OB Procedures Intrapartum: Spontaneous Vag Delivery OB Procedures: : None Time Spent with Patient Time attestation: Total time spent providing and/or coordinating discharge services: DS: Data Data Completed and Pending Completed studies during hospitalization: Pending at discharge 12/24/21 08:10 Surgical [PTH] Routine Discharge Plan Discharge Consulting providers: Shahla Sunshine ; Jon Shepherd Discharging Clinician: Navin Ramos Patient Disposition: Home, Self-Care Activity: as tolerated Diet: as tolerated Discharge Instructions: Education: Mom and Baby Guide Given to: Mother Follow-Up: Call your delivering provider's office for an appointment to be seen in: 3 Weeks [facility]. Appointment Date/Time: December 29, 2021 at 8:00 am What to expect at your follow-up visit: Blood Pressure Check Physical Assessment Call [phone] if you are unable to keep your appointment time. BREAST CARE: * Wear a snug supportive bra. * For engorgement discomfort: Breast Feeding: * Apply warm moist washcloths * Express milk as needed to relieve engorgement * Wear loose clothing Bottle Feeding: * May apply ice packs * For sore nipples: * Identify correct latch-on * Apply warm moist washcloths before and after nursing * Air dry nipples after nursing * May apply Lansinoh cream to nipples EPISIOTOMY/PERINEAL CARE: * Until bleeding stops, use your sakina bottle after urinating * Change your pad frequently throughout the day * You may take sitz baths several times a day (fill your bathtub with warm water and soak for 20 minutes.) Do NOT bathe in the water * No tub baths until seen by your physician - You may shower ACTIVITY: * Rest as much as possible. * Do not exercise or lift anything heavier than your baby (such as laundry or other children.) * Avoid stairs or driving as much as possible. * Do not put anything into the vagina. No douching, tampons, or sexual activity until seen by physician. NOTIFY PHYSICIAN IF YOU HAVE ANY QUESTIONS OR IF ANY OF THE FOLLOWING SYMPTOMS OCCUR: * If your episiotomy or incision becomes red, swollen, or more painful than what you have experienced in the hospital. * If your vaginal bleeding becomes foul smelling. * If your vaginal bleeding becomes more heavy than a period or if your bleeding changes from pink to bright red. However, you may pass an occasional walnut-sized clot once or twice for the first week . * If you experience a sharp, shooting pain in you calves. * If you discover a hard, reddened area on your breast or if you experience flu-like symptoms. DIET: * Eat regular, well-balanced meals. * Drink plenty of fluids daily. If , drink to thirst. Patient Instructions: Antibiotic Form, Vaginal Delivery (DC) Stand Alone Forms: General Discharge Information Follow-up/Referrals: Navin Ramos MD [Physician] - 3 Weeks Discharge Medications: New ibuprofen 600 mg Tablet 600 mg PO Q6H PRN (Reason: Cramping) Qty: 30 0RF Continued famotidine 40 mg tablet 40 mg PO DAILY vit-iron fum-folic ac 65 mg iron- 1 mg tablet 1 tablet PO DAILY Qty: 30 3RF albuterol sulfate [ProAir HFA] 90 mcg/actuation HFA aerosol inhaler 1 inh inhalation QID PRN (Reason: shortness of breath or wheezing) Qty: 8.5 3RF No Action nifedipine [Procardia XL] 30 mg Tablet Extended Release 24hr 30 mg PO BID Qty: 60 0RF nifedipine [Procardia XL] 30 mg tablet extended release 24hr 30 mg PO DAILY Qty: 30 0RF Date of admission: 12/24/21 02:28 Primary Care Provider: Rick More Admitting Provider: Navin Ramos Attending
== END 2021-12-26 12:40 | disposition home or self-care (01) | DRG 560 ==
LOC: ANHLDR 02:43 → ANHOB2 11:49
PROVIDERS: Admitting Provider Obstetrics & Gynecology; PCP Family Medicine; Visit Provider Obstetrics & Gynecology
DX: O77.0 Labor and delivery complicated by meconium in amniotic fluid (principal); O70.1 Second degree perineal laceration during delivery; O76 Abnormality in fetal heart rate and rhythm complicating labor and delivery; Z3A.39 39 weeks gestation of pregnancy; Z37.0 Single live birth
CPT/HCPCS: 36415; 84112; 85014; 85018; 85025; 86592; 86850; 86900; 86901; 88307; 90715; A9270; G0378; G0379; J2795; J7120

== ENCOUNTER 2021-12-27 18:21 | Observation (INO) | payer OTHER, SELFPAY ==
[2021-12-27] VITALS (8 sets, daily range): BP systolic 144–160; BP diastolic 85–108; PULSE 69–100; RESP 16–20; TEMP 36.6–36.7; O2SAT 97–100; BMI 35.9
--- NOTE | ~2021-12-27 | CT_ITS ---
EXAMINATION: CTA chest PE protocol DATE: 12/27/2021 20:38 INDICATION: Syncope, dyspnea, tightness in center of chest TECHNIQUE: Computed tomography angiography (CTA) of the chest was performed with 100 mL Omnipaque-350 intravenous contrast timed to evaluate the pulmonary arteries. Coronal maximum intensity projection 3D-reconstructions were created by the technologist. The dose-length product (DLP) was 387.76 mGy-cm. Automated exposure control and iterative reconstruction technique were employed. COMPARISON: None. FINDINGS: Lung parenchyma and airways: Smooth interlobular septal thickening. Scattered, peripheral centrilobul ar nodular and groundglass opacities, most evident in the right middle lobe. Right basilar atelectasi s. Pleura: Small right and trace left pleural fluid collections. Thoracic inlet, axillae and chest wall: Unremarkable. Thoracic aorta: Normal. Mediastinum: Normal. Heart and pericardium: Normal. Coronary artery calcifications: Absent. Upper abdomen: No significant finding. Bones: No acute osseous finding. Pulmonary arteries: Study quality: Adequate. No pulmonary emboli detected. IMPRESSION: No CT evidence of acute pulmonary embolus. Interstitial pulmonary edema diffusely and bilaterally. Sm all right and trace left pleural effusions. Centrilobular, as can be seen with hypersensitivity pneum onitis, respiratory bronchiolitis in smokers, or infectious airways disease. Reviewed, dictated and finalized at location K. IMPRESSION: No CT evidence of acute pulmonary embolus. Interstitial pulmonary edema diffuse ly and bilaterally. Small right and trace left pleural effusions. Centrilobular , as can be seen with hypersensitivity pneumonitis, respiratory bronchiolitis i n smokers, or infectious airways disease.
--- NOTE | ~2021-12-27 | XR_ITS ---
XR chest 1V portable 12/28/2021 06:24 Indication: Dyspnea. Procedure: AP portable chest Comparison: Comparison to multiple prior studies sequentially, with oldest reviewed study dated 04/09. Findings: There has been progression of bilateral diffuse airspace disease. Possible small effusions. No pneumothorax. Heart size is normal for technique. No acute osseous abnormality. Impression: 1: Interval progression of diffuse bilateral airspace disease which may represent edema or pneumonia. Reviewed, dictated and finalized at location A. Impression: 1: Interval progression of diffuse bilateral airspace disease which may represe nt edema or pneumonia.
--- NOTE | ~2021-12-27 | XR_ITS ---
EXAMINATION: XR chest 2V Exam Date/Time: 12/27/2021 19:20 CDT HISTORY: shortness of breath, SYNCOPAL EPISODE Comparison: 11/21/2021. RESULT: Lines, tubes, and devices: None. Lungs and pleura: Diffuse reticular and reticulonodular opacities. Bilateral costophrenic angle blun ting. Subsegmental right basilar opacities. Fluid in the right major fissure. Cardiomediastinal silhouette: Stable. Other: No acute osseous or upper abdominal finding. IMPRESSION: Likely interstitial pulmonary edema, noting that bronchiolitis could appear similar or occur concurre ntly. Likely small right pleural fluid collection. Subsegmental right basilar atelectasis/consolidati on. Reviewed, dictated and finalized at location K. IMPRESSION: Likely interstitial pulmonary edema, noting that bronchiolitis could appear sim ilar or occur concurrently. Likely small right pleural fluid collection. Subseg mental right basilar atelectasis/consolidation.
--- NOTE | 2021-12-27 18:49 | ECG_ITS ---
Measurements Intervals [place] Rate: 72 P: 267 NM: 123 QRS: 49 QRSD: 71 T: 52 QT: 381 QTc: 418 Interpretive Statements ECTOPIC ATRIAL RHYTHM ABNORMAL RHYTHM ECG COMPARED TO ECG 11/22/2021 00:50:56 NON SINUS RHYTHM NOW PRESENT Electronically Signed On 12-28-2021 10:16:25 CDT by Michael Samuel M.D.
[2021-12-27 19:03] LABS: Basophils Absolute Auto 0.1 K/mm3 (0.0-0.1); Basophils Percent Auto 0.4 % (0.2-1.2); Eosinophils Absolute Auto 0.2 K/mm3 (0-0.3); Eosinophils Percent Auto 1.6 % (0-4.4); Hematocrit 28.1 % (37.0-47.0); Hemoglobin 9.3 g/dL (12.0-15.0); Immature Granulocyte Absolute 0.16 K/mm3 (0.00-0.031); Immature Granulocyte Percent A 1.3 % (0-0.5); Lymphocytes Absolute Auto 1.67 K/mm3 (0.9-3.2); Lymphocytes Percent Auto 13.3 % (18.3-44.2); Mean Corpuscular HGB Conc 33.1 g/dl (32-36); Mean Corpuscular Hemoglobin 30.5 pg (26-34); Mean Corpuscular Volume 92.1 fl (80-100); Mean Platelet Volume 11.3 fl (7.4-10.4); Monocytes Absolute Auto 0.6 K/mm3 (0.1-0.6); Monocytes Percent Auto 4.5 % (2.6-8.5); Neutrophils Absolute Auto 9.9 K/mm3 (1.3-6.7); Neutrophils Percent Auto 78.9 % (45.5-73.1); Platelet Count Result 222 k/mm3 (150-375); Red Blood Count 3.05 M/mm3 (4.2-5.4); Red Cell Distribution Width 13.5 % (11.5-14.5); White Blood Count 12.6 K/mm3 (4.5-10.0)
[2021-12-27 19:14] LABS: Alanine Aminotransferase 27 U/L (6-35); Albumin Level 3.3 g/dL (3.5-5.1); Alkaline Phosphatase 131 U/L (38-126); Anion Gap 9 mmol/L (8-16); Aspartate Amino Transferase 36 U/L (14-36); Bilirubin,Total 0.2 mg/dL (0.2-1.3); Blood Urea Nitrogen 12 mg/dL (7-17); Calcium 8.9 mg/dL (8.4-10.2); Carbon Dioxide 24 mmol/L (22-30); Chloride 105 mmol/L (98-107); Estimated Glomerular Filt Rate > 60; Glucose 100 mg/dL (65-110); Potassium 3.8 mmol/L (3.4-5.0); Sodium 138 mmol/L (137-145)
--- NOTE | 2021-12-27 19:18 | ED.SYNCOPE ---
HPI - Syncope General Chief Complaint: Syncope Stated Complaint: weak, difficulty breathing Time Seen by Provider: 12/27/21 19:01 History of Present Illness HPI narrative: This is a 26-year-old female G1, P1 status post spontaneous vaginal delivery 3 days ago, presenting the emergency department after an episode of syncope. Patient states she was feeding her today when she began feeling short of breath with some chest pressure and lost consciousness. Since then she has had continued feelings of shortness of breath. She also complains of bilateral leg swelling, the right worse than the left. She notes her was complicated by elevated blood pressure but denies knowing of pre-eclampsia. Related Data Home Medications Medication Instructions Recorded Confirmed famotidine 40 mg tablet 40 mg PO DAILY 04/28/21 12/27/21 Allergies Allergy/AdvReac Type Severity Reaction Status Date / Time No Known Allergies Allergy Verified 12/24/21 03:27 Review of Systems Review of Systems: CONSTITUTIONAL: Denies fever, chills, or sweats. EYES: Denies visual changes, redness, or discharge. ENT: Denies rhinorrhea, congestion, sore throat, or otalgia. CARDIOVASCULAR: Chest pressure, bilateral lower extremity edema, right worse than left; denies palpitations RESPIRATORY: Denies cough or dyspnea. GASTROINTESTINAL: Denies abdominal pain, nausea, vomiting, or diarrhea. GENITOURINARY: Denies dysuria or hematuria. SKIN: Denies rash or itching. MUSCULOSKELETAL: Denies back pain, joint pain, or myalgia. NEUROLOGIC: Syncope, denies headache, numbness, dizziness, or weakness. PSYCHIATRIC: Denies anxiety or depression. [facility] Past Medical History Medical History Abnormal glucose tolerance in Anxiety Bronchitis Depression GERD (gastroesophageal reflux disease) Migraines Seizures Suppression of menstruation Surgical History Surgical History History of ovarian cystectomy 03/27/14 lscope rt ovarian cystectomy--teratoma Family History Family History Father Hypertension Mother Cervical cancer Grandparent Cervical cancer maternal grandmother Diabetes mellitus Social History Social History Smoking status: Never smoker Second hand tobacco smoke exposure: No Alcohol intake: never Substance use: never Substance use type: marijuana Other substance usage details: 3 x daily for appetite Last use: last time 12/07/21 Additional living arrangements comments: mother 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 EYES: PERRLA and EOMI. ENT: Nares clear, no rhinorrhea or epistaxis. Mucous membranes moist. Oropharynx without tonsillar hypertrophy exudate or other lesions. NECK: Supple. No adenopathy or masses. No carotid bruits or JVD CHEST: Tachypneic, clear to auscultation. No respiratory distress. No wheezes rales or rhonchi HEART: Regular rate and rhythm. No murmur heard. Normal peripheral pulses. ABDOMEN: Soft, nontender, nondistended, normal active bowel sounds. EXTREMITIES: Normal range of motion. 1+ edema of the left lower extremity, 2+ edema of the right lower extremity SKIN: Warm, dry, no rash. NEURO: No focal deficits. Alert and oriented x3. PSYCH: Normal mood and affect. Course Course Emergency Course: 21:00 - CT negative for PE and demonstrates pulmonary edema. BNP 1240, Troponin 0.081. ECG shows junctional rhythm, I suspect the patient may have peripartum cardiomyopathy. 21:20 - D
[2021-12-27] MEDS: METOPROLOL TARTRATE INJ 5 MG/5 ML VIAL IV PUSH (19:22)
[2021-12-27 19:45] LABS: NT Pro B Type Natriuretic Pept 1240 pg/mL (5-100); Troponin I 0.081 ng/mL (0.000-0.034)
[2021-12-27] MEDS: hydrALAZINE HCL 20 MG/ML VIAL 10 MG IV PUSH (20:13)
--- NOTE | 2021-12-27 21:58 | PC.NURSE ---
Per EDP Dr. Longoria patient allowed to drink water after patient requested. Pt. given water.
[2021-12-27 22:11] LABS: Add Urine Microscopic? YES; Appearance Urine Clear (Clear); Bacteria Urine Trace /hpf; Bilirubin Urine Negative (Negative); Blood Urine 3+ (Negative); Color Urine Straw (Yellow); Glucose Urine UA Negative (Negative); Ketones Urine Negative (Negative); Leukocyte Esterase Ur 2+ LEU/UL (Negative); Nitrate Urine Negative (Negative); Protein Urine Negative (Negative); RBC Urine >75 /hpf (0-2); Specific Grav Ur 1.041 (1.001-1.035); Squamous Epithelial Cell Urine Occasional /hpf (Few); Urobilinogen Urine Negative mg/dL (<2.0); WBC Urine 31-50 /hpf
[2021-12-27 22:22] LABS: Troponin I 0.077 ng/mL (0.000-0.034)
--- NOTE | 2021-12-27 23:36 | ADMGEN ---
This patient, Calixto Augustin, was admitted to IMU Room 212-01. Patient/family oriented to hospital policies and general routines including ID bracelet, bed and alarms, visiting hours, pain management, procedures, bathroom and other care routines, personal items, smoking policy, room service/diet, and visiting hours. Information on how to activate the Rapid Response Team has been discussed. Patient/Family are encouraged to report perceived risks to care and to ask questions if they do not understand what they are told or what they should do.
[2021-12-28] VITALS (20 sets, daily range): BP systolic 134–159; BP diastolic 81–108; PULSE 74–113; RESP 16–20; TEMP 36.2–36.7; O2SAT 99–100
--- NOTE | 2021-12-28 00:46 | PM.IMHP ---
H&P: HPI History of Present Illness Date/Time: 12/28/21 00:46 Chief Complaint: syncope Narrative: 26-year-old female with past medical history significant for gastroesophageal reflux disease, seizure disorder, migraine headaches, bronchitis, patient is status had a normal vaginal delivery on the 24 of December presented to the emergency room due to syncopal episode after lactating baby during in patient had gestational induced hypertension however no eclampsia or preeclampsia was developed. According to patient everything seemed to be going well she denies any aura has not had any fevers, rigors, chills but has been sleep deprived, she has been eating well and drinking well, no nausea, no vomiting, no diarrhea, no palpitations, no chest pain, no dizziness, lochia present according to stage, patient was out for 5 minutes or so there was no confusion or post ictal stage. Upon presentation to the emergency room patient was found to have a blood pressure of 156/103, preliminary workup was significant for CBC panel WBC was 19605 hemoglobin 9.3 brain atretic peptide was 1240, troponins x3 0.081/0.077/0.084. A urinalysis was significant for 30-75 wbc's per high-power field. a chest x-ray was reported as; IMPRESSION: Likely interstitial pulmonary edema, noting that bronchiolitis could appear similar or occur concurrently. Likely small right pleural fluid collection. Subsegmental right basilar atelectasis/consolidation. a CT PE protocol was reported as: IMPRESSION: No CT evidence of acute pulmonary embolus. Interstitial pulmonary edema diffusely and bilaterally. Small right and trace left pleural effusions. Centrilobular, as can be seen with hypersensitivity pneumonitis, respiratory bronchiolitis in smokers, or infectious airways disease. patient is being admitted for further evaluation management and treatment. Review of Systems Review of Systems: syncopal episode Constitutional: Constitutional: Denies chills, Denies fever(s), Denies malaise, Denies night sweats and Denies weakness Eyes: Eyes: Denies change in vision ENT: Denies dysphagia, Denies vertigo, Denies dizziness and Denies odynophagia Cardiovascular: Cardiovascular: Denies chest pain, Reports syncope, Denies irregular heart rhythm, Denies lightheadedness and Denies palpitations Respiratory: Respiratory: Denies chest congestion, Denies cough and Denies pain on inspiration Gastrointestinal: Gastrointestinal: Denies abdominal pain, Denies dyspepsia, Denies heartburn, Denies diarrhea, Denies nausea and Denies vomiting Genitourinary: Genitourinary: Reports no additional female genitourinary complaints and Reports as per HPI Musculoskeletal: Musculoskeletal: Denies arthralgias and Denies limited range of motion Integumentary/Breasts: Skin/Breast: Denies rash Neurologic: Denies vertigo, Denies dizziness, Denies focal weakness and Denies Sensory deficit (Neuro) Psychiatric: Psychiatric: Reports no additional psychiatric complaints and Reports as per HPI Endocrine: Endocrine: Denies cold intolerance, Denies flushing, Denies heat intolerance, Denies polyphagia, Denies polydipsia and Denies palpitations Hematologic/Lymphatic: Hematologic/Lymphatic: Reports no additional hematologic/lymphatic complaints and Reports as per HPI Allergic/Immunologic: Allergic/Immunologic: Reports no additional allergic/immunologic complaints and Reports as per HPI PMFSH Past Medical History Medical History Abnormal glucose tolerance in Anxiety Bronchitis Depression GERD (gastroesophageal reflux disease) Migraines Seizures Suppression of menstruation Surgical History Surgical History History of ovarian cystectomy 03/27/14 lscope rt ovarian cystectomy--teratoma Family History Family History (Reviewed 12/24/21 @ 03:07 by Laura
--- NOTE | 2021-12-28 00:49 | ECG_ITS ---
Measurements Intervals [place] Rate: 102 P: 53 [place]: 133 QRS: 40 QRSD: 77 T: 41 QT: 372 QTc: 486 Interpretive Statements SINUS TACHYCARDIA POSSIBLE LEFT ATRIAL ENLARGEMENT [-0.1mV P WAVE IN V1/V2] ABNORMAL RHYTHM ECG COMPARED TO ECG 12/27/2021 18:55:54 SINUS TACHYCARDIA NOW PRESENT Electronically Signed On 12-29-2021 11:24:06 CDT by Pola Leach M.D.
[2021-12-28 01:40] LABS: Troponin I 0.084 ng/mL (0.000-0.034)
--- NOTE | 2021-12-28 03:18 | PC.NURSE ---
Pt concerned with receiving antibiotics and being able provide breast milk for child. Consulted pharmacy, OB, Dr Herrera, and Dr Camara-[facility] regional clinical research associate and only Dr Herrera had reservations per a risk to the child for jaundice. She states that it would be best if the patient kept pumping but discarded her breast milk up to 72 hours after last dose of azithromycin. This RN and Pretty Shay RN provided information to patient. We explained that due to contradicting information we can not exclude a risk to her child. Pt is emotional, anxious, and angry because she is from her child. She states she did not think she would get admitted. Patient concerned about what type of formula she would need to buy. Again Dr Camara was called and an extensive conversation was had. He looked at reference materials and stated that the only risk for jaundice would be if ceftriaxone was given to the child directly, not through breast milk and recommended similac advance. Provided information to patient again and she will be pumping and providing breast milk to child. She does state however that she wants to go home, she would come back in the morning. Reiterated need for care in hospital due to blood pressure and possible infections and if she left she would have to go through the ER again. Patient staying tonight and consenting to administration of antibiotics but states she will not stay another night- any testing needs to be done today .
[2021-12-28] MEDS: FUROSEMIDE INJ 40 MG/4 ML VIAL IV PUSH ×2 (03:20→17:52)
[2021-12-28] MEDS: ACETAMINOPHEN 500 MG TABLET 1000 MG PO (04:36)
--- NOTE | 2021-12-28 04:45 | PC.NURSE ---
B/P 159/108, denies headache or neurological symptoms. Dr. Herrera notified, wants Methyldopa given now, recheck B/P in one hour and may treat with hydralazine that she will order. Also requesting blood cultures.
--- NOTE | 2021-12-28 05:40 | PC.NURSE ---
2 bottles of breast milk taken for storage on 2nd OB. Boyfriend will pick it up later.
--- NOTE | 2021-12-28 06:02 | PC.NURSE ---
Spoke with pharmacy. Methyldopa is not formulary. Kamran will contact Dr. Herrera. This information was received at [phone].
--- NOTE | 2021-12-28 06:09 | PC.NURSE ---
Dr. Herrera has been in a code situation in the ICU and has been unreachable. Called again and received medication orders from Dr. Herrera. See orders.
[2021-12-28] MEDS: NIFEdipine 10 MG CAPSULE 30 MG PO (06:31)
--- NOTE | 2021-12-28 06:43 | PC.NURSE ---
I reviewed the License Pending RN'sNiecy's documentation and agree with the findings.
--- NOTE | 2021-12-28 09:31 | PM.CNCAR ---
Assessment and Plan Assessment and plan (1) Syncope: Code(s): R55 - Syncope and collapse Status: Acute Plan This is a 26-year-old woman previously healthy who just delivered her 1st child a couple of days ago. She entered the hospital after having a syncopal episode yesterday from which she spontaneously recovered. She has been having some shortness of breath and does appear to have some pulmonary congestion on her admission chest x-ray. Obviously the concern is regarding the possibility of peripartum cardiomyopathy. Interestingly she was in an ectopic atrial rhythm when she got here she is now back in sinus rhythm and is more tachycardic. She is asymptomatic after being given some IV furosemide and otherwise feels well. An echocardiogram obviously needs to be done for further evaluation of this. She is clinically stable and this is not an emergency for which the team sports sales associate should be called in on Wednesday. The patient is firm in her opinion that she is not staying in the hospital overnight again for an echocardiogram tomorrow. If she chooses to leave the hospital we need to make sure that this is scheduled as an outpatient. If she has an echocardiogram in the laboratory here as an outpatient I will be happy to see her in the office and discuss these findings. Obviously if it is a normal exam then there would be no need for ongoing follow-up in my office. It is also possible she is just simply mobilizing the edema of and became short of breath for this reason. It would of course be my preference for her to stay in the hospital and have the echocardiogram done as an inpatient given these concerns however the patient I do not believe will be willing to do this Michael Samuel MD [facility] History of Present Illness History of Present Illness Consult date/time: 12/28/21 09:31 Consult reason: shortness of breath Reason For Visit: syncope Narrative: This is a 26-year-old woman I am seeing at the request of the hospitalist who was seen in the emergency room yesterday evening after experiencing a syncopal episode in her home from which she recovered spontaneously. The patient has no prior cardiac history in really no significant medical problems. She just delivered her 1st child with the normal vaginal delivery of a healthy son about 2 days prior to coming in the hospital. She had just that her son yesterday evening and she felt very weak and fatigued after that she then felt very warm and her boyfriend took her son to lay him down in the crib and when he came back into the room realize that she had lost consciousness. She was unwitnessed when this occurred within about a minute or so she spontaneously regained consciousness and was complaining of some shortness of breath upon regaining consciousness. She says that she has been having some shortness of breath going back to the last trimester of and it was somewhat worse after this episode occurred. She has been having some accumulating lower extremity edema through the last trimester of but this was not felt to be anything out of the ordinary during . She was not having any sense of palpitations orthopnea or PND. Her chest x-ray in the emergency room does show some pulmonary congestion she was given some intravenous furosemide and feels much better this morning. Of course an echocardiogram has been ordered but this being Wednesday is not going to be done is there is no team sports sales associate in the hospital on Wednesday. Her electrocardiogram shows sinus rhythm with some nonspecific ST and T abnormalities. Her home medications include vitamins, ProAir inhaler, famotidine and ibuprofen. Review of Systems Constitutional: Constitutional: Reports no additional constitutional complaints Eyes: Eyes: Reports no additional eye complaints ENT: Reports system reviewed and no additional complaints, except as documented Cardiovascular: Cardiovascular: Reports no
[2021-12-28] MEDS: ACETAMINOPHEN 325 MG TABLET 650 MG PO ×2 (09:49→16:26)
--- NOTE | 2021-12-28 10:04 | P.PNCROSS_ITS ---
Event Note Event Note Event Note: I was called at 2054 and informed by ED that this patient delivered by a Dr. Gulshan pham at outside facility, is what the patient told him. He had contacted Cardiology. I accepted patient as a consult based on what ED physician told me. When I arrived this morning and reviewed the chart, it is apparent that she is Dr. Herzog patient. I called the second floor, IMU to have them call the patient's OB, Dr. Ramos. I did not see the patient.
[2021-12-28] MEDS: IBUPROFEN 600 MG TABLET PO ×2 (12:30→17:57)
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
--- NOTE | 2021-12-28 15:53 | PM.EVENT ---
Event Note Event Note Event Note: pt seen for follow up rounding from same date H&P pt wanting to go home she is admitted for syncope at home and found to be in CHF in ER. no ECHO on Wednesday seen by OB and agrees to stay if can be moved to [facility] and have her son stay with her no tele in that area of the hospital risks benefits discussed w pt and she requests transfer despite risk to her health boyfriend in room sitting on couch and present for all discussions in decision making process Nifedipine started by OB Cardiology following dispo: home when euvolemic and HF workup completed
--- NOTE | 2021-12-28 16:19 | PC.NURSE ---
Per Dr Atkins, patient to move to OB unit for further care. Both Dr Samuel and Dr Moreno are aware and agreeable to transfer. Gave report to NAHEED Denney. Patient to room 113.
--- NOTE | 2021-12-28 17:23 | PM.OBDSVD ---
DS: Admitting Diagnosis Discharge Date 12/26/2021/ Admitting Diagnosis OB - DS: Summary Time Spent with Patient Time attestation: Total time spent providing and/or coordinating discharge services: DS: Data Data Completed and Pending Labs on day of discharge: Labs from last 24 hours 12/28/21 12/27/21 12/27/21 01:00 21:54 21:54 WBC RBC Hgb Hct MCV MCH MCHC RDW Plt Count MPV Immature Gran % (Auto) Neut % (Auto) Lymph % (Auto) [place] % (Auto) Eos % (Auto) Baso % (Auto) Lymph # (Auto) [place] # (Auto) Eos # (Auto) Baso # (Auto) Abs Immat Gran (auto) Absolute Neuts (auto) Absolute Nucleated RBC Nucleated RBC % Sodium Potassium Chloride Carbon Dioxide Anion Gap BUN Creatinine Estim Creat Clear Calc Estimated GFR Glucose Calcium Total Bilirubin AST ALT Alkaline Phosphatase Troponin I 0.084 H* 0.077 H* NT-Pro-B Natriuret Pep Total Protein Albumin Urine Color Straw Urine Appearance Clear Urine pH 8.0 Ur Specific [place] 1.041 H Urine Protein Negative Urine Glucose (UA) Negative Urine Ketones Negative Ur Blood (Man) 3+ H Urine Nitrate Negative Urine Bilirubin Negative Urine Urobilinogen Negative Leukocyte Esterase Rfl 2+ H Urine RBC >75 H Urine WBC 31-50 H Ur Squamous Epith Cells Occasional Urine Bacteria Trace 12/27/21 12/27/21 12/27/21 18:54 18:54 18:54 WBC 12.6 H RBC 3.05 L Hgb 9.3 L Hct 28.1 L MCV 92.1 MCH 30.5 MCHC 33.1 RDW 13.5 Plt Count 222 MPV 11.3 H Immature Gran % (Auto) 1.3 H Neut % (Auto) 78.9 H Lymph % (Auto) 13.3 L [place] % (Auto) 4.5 Eos % (Auto) 1.6 Baso % (Auto) 0.4 Lymph # (Auto) 1.67 [place] # (Auto) 0.6 Eos # (Auto) 0.2 Baso # (Auto) 0.1 Abs Immat Gran (auto) 0.16 H Absolute Neuts (auto) 9.9 H Absolute Nucleated RBC 0.0 Nucleated RBC % 0.0 Sodium 138 Potassium 3.8 Chloride 105 Carbon Dioxide 24 Anion Gap 9 BUN 12 D Creatinine 0.60 L Estim Creat Clear Calc Not Reportable Estimated GFR > 60 Glucose 100 Calcium 8.9 Total Bilirubin 0.2 AST 36 ALT 27 Alkaline Phosphatase 131 H Troponin I 0.081 H* NT-Pro-B Natriuret Pep 1240 H Total Protein 6.0 L Albumin 3.3 L Urine Color Urine Appearance Urine pH Ur Specific [place] Urine Protein Urine Glucose (UA) Urine Ketones Ur Blood (Man) Urine Nitrate Urine Bilirubin Urine Urobilinogen Leukocyte Esterase Rfl Urine RBC Urine WBC Ur Squamous Epith Cells Urine Bacteria Discharge Plan Discharge Consulting providers: Michael Samuel ; Mary Atkins Discharging Clinician: Navin Ramos Patient Instructions: Syncope (DC), Hypertension (DC) Discharge Medications: No Action famotidine 40 mg tablet 40 mg PO DAILY vit-iron fum-folic ac 65 mg iron- 1 mg tablet 1 tablet PO DAILY Qty: 30 3RF albuterol sulfate [ProAir HFA] 90 mcg/actuation HFA aerosol inhaler 1 inh inhalation QID PRN (Reason: shortness of breath or wheezing) Qty: 8.5 3RF ibuprofen 600 mg Tablet 600 mg PO Q6H PRN (Reason: Cramping) Qty: 30 0RF Date of admission: 12/27/21 21:20 Primary Care Provider: Rick More Admitting Provider: Isis Herrera V. Attending physician on admission: Isis Herrera V. Condition: Serious
[2021-12-28] MEDS: NIFEdipine 30 MG TAB.ER.24 PO (17:52)
[2021-12-28] MEDS: hydrALAZINE HCL 20 MG/ML VIAL 10 MG IV PUSH (22:25)
--- NOTE | 2021-12-28 23:02 | PC.NURSE ---
NAHEED Teran at bedside, attempted to take BP, pt up in bathroom and stated she will let me know when she is finished.
--- NOTE | 2021-12-28 23:23 | PC.NURSE ---
RN Ashvin Teran at bedside. Took BP, pt nursing baby. Support person at bedside. Pt stated she would like to rest until her med are due at 0415. Pt denied any needs at this time.
[2021-12-29] VITALS (9 sets, daily range): BP systolic 139–164; BP diastolic 77–108; PULSE 97–108; RESP 18; TEMP 36.3–36.8
--- NOTE | 2021-12-29 | ECHO_ITS ---
Patient Info Name: Calixto Augustin Age: 26 years : 1995 Gender: Female Ht: 61 in Wt: 189 lbs BSA: 1.96 m2 HR: 97 bpm BP: 140 / 91 mmHg Heart Rhythm: Sinus Rhythm Technical Quality: Fair Exam Date: 12/29/2021 10:50 AM Exam Location: [facility] Pul[facility] Patient Status: Outpatient Admit Date: 12/27/2021 Staff Ordering Physician: Isis Herrera MD Mobile Home Servicer: Alison Krause RDCS Attending Provider: Isis Herrera MD Referring Physician: Sharon WEBSTER; Exam Type: CA echo doppler color flow Study Info Indications - chf Complete two-dimensional, color flow and Doppler transthoracic echocardiogram is performed. Summary 1. Complete two-dimensional, color flow and Doppler transthoracic echocardiogram is performed. 2. Unremarkable echocardiogram. Left Ventricular Outflow Tract Name Value Normal LVOT 2D LVOT Diameter 2.0 cm LVOT Doppler LVOT Peak Gradient 6 mmHg LVOT Mean Gradient 3 mmHg LVOT VTI 22 cm LVOT VTI/AV VTI Ratio 0.7 LVOT Stroke Volume 69 ml LVOT CO 6.2 l/min LVOT CI 3.2 l/min/m2 Pulmonic Valve Name Value Normal RVOT Doppler RVOT Peak Gradient 2 mmHg PV Doppler PV Peak Gradient 4 mmHg Mitral Valve Name Value Normal MV Doppler MV Decel Corson 1,179 cm/s2 MV PHT 21 ms MV Area (PHT) 10.4 cm2 4.0-5.0 MV Diastolic Function MV E Peak Velocity 86 cm/s MV A Peak Velocity 110 cm/s MV E/A 0.8 MV Decel Time 73 ms MV Annular TDI MV E/e' (Septal) 10.9 <=8.0 MV E/e' (Lateral) 12.0 <=8.0 MV E/e' (Average) 11.5 Tricuspid Valve Name Value Normal TV Regurgitation Doppler TR Peak Velocity 245
[2021-12-29] MEDS: hydrALAZINE HCL 20 MG/ML VIAL 10 MG IV PUSH (05:50)
[2021-12-29] MEDS: IBUPROFEN 600 MG TABLET PO (07:14)
[2021-12-29] MEDS: NIFEdipine 30 MG TAB.ER.24 PO (07:24)
--- NOTE | 2021-12-29 07:51 | P.PNOB_ITS ---
OB - PN: Subj Subjective Date/time seen: 12/29/21 07:51 26-year-old female 3 days status post vaginal delivery. Admitted through the emergency room with pulmonary edema and shortness of breath which responded well to Lasix. Also found to be hypertensive as she had been on discharge, and nifedipine was initiated. She is awaiting echocardiogram today. If echocardiogram is normal, will discharge home on current medications and follow-up in 1 week for blood pressure check. If echocardiogram abnormal, raimundo castro will defer to Cardiology for further discussion. OB - PN: Obj Data Labs CBC & Chem 7: 12/27/21 18:54 12/27/21 18:54 OB - PN A/P Time Spent With Patient Time: Total time spent is greater than 50% in coordination of care (as documented) at patient's floor/unit and/or counseling patient:
--- NOTE | 2021-12-29 09:16 | PM.PNCARD ---
Progress Note: A&P Assessment and Plan (1) Pulmonary edema: Code(s): J81.1 - Chronic pulmonary edema Status: Acute (2) Syncope: Code(s): R55 - Syncope and collapse Status: Acute (3) Elevated troponin: Code(s): R77.8 - Other specified abnormalities of plasma proteins Status: Acute Plan Blood pressure controlled this AM. Awaiting echocardiogram. Further recommendations pending results of echo. Subjective Date/time seen: 12/29/21 09:16 Interval history: No acute events overnight. Patient reports feeling much better. RN reports that patient's blood pressure overnight was taken with a pediatric cuff, however, BP in the 130s systolics with an adult blood pressure cuff. Awaiting echo. Review of Systems Review of Systems: All systems reviewed & are unremarkable except as noted in HPI and below (subjective) Exam Const: General: comfortable and no acute distress Neck: Neck: no JVD Resp: Effort & Inspection: normal respiratory effort Auscultation: clear to auscultation bilaterally Cardio: Rate: regular rate Rhythm: regular rhythm Heart sounds: no murmurs GI: GI Palp: Yes Soft to palpation Skin: General skin exam: normal color Neuro: Speech: normal speech Psych: Mental Status: mental status grossly normal Objective Data Vital Signs Vital Signs: Vital Signs - 24 hr 12/28/21 12:00 12/28/21 10:00 12/28/21 12:00 Temperature 36.6 C Pulse Rate 105 H 102 H Respiratory Rate 20 Blood Pressure 140/83 Pulse Oximetry 100 Oxygen Delivery Room Air 12/28/21 16:04 12/28/21 17:54 12/28/21 19:17 Temperature Pulse Rate 113 H 91 79 Respiratory Rate Blood Pressure 142/87 H 147/85 H 151/97 H Pulse Oximetry Oxygen Delivery 12/28/21 19:29 12/28/21 19:31 12/28/21 22:13 Temperature Pulse Rate 83 74 86 Respiratory Rate Blood Pressure 154/98 H 147/99 H 148/92 H Pulse Oximetry Oxygen Delivery 12/28/21 22:33 12/28/21 23:19 12/29/21 02:12 Temperature Pulse Rate 86 88 101 H Respiratory Rate Blood Pressure 143/91 H 149/87 H 159/108 H Pulse Oximetry Oxygen Delivery 12/29/21 02:18 12/29/21 05:45 12/29/21 05:46 Temperature Pulse Rate 97 101 H 97 Respiratory Rate Blood Pressure 143/89 H 142/96 H 140/91 H Pulse Oximetry Oxygen Delivery 12/29/21 07:19 12/29/21 07:33 12/29/21 08:08 Temperature Pulse Rate 105 H 105 H 99 Respiratory Rate Blood Pressure 164/90 H 145/93 H 139/85 Pulse Oximetry Oxygen Delivery 12/28/21 16:12 12/28/21 16:18 12/28/21 12:00 Temperature 36.5 C Pulse Rate 99 Respiratory Rate 18 Blood Pressure Pulse Oximetry Oxygen Delivery Room Air 12/28/21 14:00 12/28/21 19:00 12/28/21 18:30 Temperature 36.2 C L Pulse Rate 98 Respiratory Rate Blood Pressure Pulse Oximetry Oxygen Delivery Room Air 12/28/21 22:00 12/28/21 23:00 12/29/21 02:12 Temperature 36.4 C 36.8 C Pulse Rate Respiratory Rate Blood Pressure Pulse Oximetry Oxygen Delivery Room Air 12/29/21 03:00 12/29/21 08:14 Temperature 36.3 C L Pulse Rate Respiratory Rate 18 Blood Pressure Pulse Oximetry Oxygen Delivery Room Air Intake/Output Intake/Output: Intake & Output 12/26/21 12/27/21 12/28/21 12/29/21 23:59 23:59 23:59 23:59 Intake Total 1000 200 Output Total 200 2600 Balance 800 -2400 Meds/Results Medications: Active Medications Generic Name Dose Route Start Last Admin Trade Name Freq PRN Reason Stop Dose Admin Acetaminophen 650 mg 12/28/21 08:46 12/28/21 16:26 Acetaminophen 325 Mg Tablet PO 650 mg Q6H PRN Administration Mild Pain (1-3) or Fever Benzocaine 1 spray 12/28/21 19:22 Benzocaine 20% Aer Spr (*Sp) 56 Gm Can TOPICAL PRN PRN Perineal Discomfort Enoxaparin Sodium 40 mg 12/28/21 09:00 12/28/21 09:35 Enoxaparin 40 Mg/0.4 Ml Syringe SUB-Q Not Given AZAR
[2021-12-29] MEDS: FUROSEMIDE INJ 40 MG/4 ML VIAL IV PUSH (09:35)
--- NOTE | 2022-01-01 08:41 | PM.DS ---
DS: Admitting Diagnosis Discharge Date 12/29/21 Admitting Diagnosis 1. Shortness of breath 2. Syncopal episode DS: Discharge Diagnosis Discharge Diagnosis Plan 1. Continue on nifedipine XR was is on currently 2. Follow-up 72 hours for blood pressure check in office 3. Return to emergency room for any significant symptoms of headache short of chest pain or further syncopal episodes. DS: Summary Hospital Course Reason for hospitalization: 26-year-old female minute 3 days post delivery after having a unwitnessed syncopal episode at home. This was not followed by any type of post ictal symptomatology. She also overall with some shortness of breath therefore presented the emergency room. Hospital Course: During hospitalization was initiated on antihypertensives and diuresed with intravenous Lasix. All of her other laboratory values were normal and no other issues were found. Also had an echocardiogram during this hospitalization which after discharge was read as normal. Was discharged on days 3 with the above instructions. Time Spent with Patient Time attestation: Total time spent providing and/or coordinating discharge services: DS: Data Data Completed and Pending Labs on day of discharge: Preliminary micro results at discharge 12/28/21 05:28 Blood Culture - Preliminary Blood 12/28/21 05:29 Blood Culture - Preliminary Blood Discharge Plan Discharge Consulting providers: Michael Samuel ; Mary Atkins Discharging Clinician: Navin Ramos Patient Disposition: Home, Self-Care Activity: as tolerated and pelvic rest Diet: as tolerated Patient Instructions: Syncope (DC), Hypertension (DC) Stand Alone Forms: General Discharge Information Follow-up/Referrals: Navin Ramos MD [Physician] - Discharge Medications: New nifedipine [Procardia XL] 30 mg Tablet Extended Release 24hr 30 mg PO BID Qty: 60 0RF Continued famotidine 40 mg tablet 40 mg PO DAILY vit-iron fum-folic ac 65 mg iron- 1 mg tablet 1 tablet PO DAILY Qty: 30 3RF albuterol sulfate [ProAir HFA] 90 mcg/actuation HFA aerosol inhaler 1 inh inhalation QID PRN (Reason: shortness of breath or wheezing) Qty: 8.5 3RF ibuprofen 600 mg Tablet 600 mg PO Q6H PRN (Reason: Cramping) Qty: 30 0RF No Action nifedipine [Procardia XL] 30 mg tablet extended release 24hr 30 mg PO DAILY Qty: 30 0RF Date of admission: 12/27/21 21:20 Primary Care Provider: Rick More Admitting Provider: Isis Herrera V. Attending physician on admission: Isis Herrera V. Condition: Serious
== END 2021-12-29 12:57 | disposition home or self-care (01) ==
LOC: ANHED 19:49 → ANHIMU 23:10 → ANHOBPP 12-28 15:55
PROVIDERS: General Practice; Admitting Provider Internal Medicine; Emergency Provider Preventive Medicine Aerospace Medicine; PCP Family Medicine; Visit Provider Internal Medicine
DX: R55 Syncope and collapse (principal); J81.1 Chronic pulmonary edema; R06.02 Shortness of breath; R77.8 Other specified abnormalities of plasma proteins; I50.9 Heart failure, unspecified; I11.0 Hypertensive heart disease with heart failure; N39.0 Urinary tract infection, site not specified; M79.89 Other specified soft tissue disorders; F12.90 Cannabis use, unspecified, uncomplicated; G40.909 Epilepsy, unspecified, not intractable, without status epilepticus; K21.9 Gastro-esophageal reflux disease without esophagitis; Z79.51 Long term (current) use of inhaled steroids
CPT/HCPCS: 36415; 71045; 71046; 71275; 80053; 81001; 83880; 84484; 85025; 87040; 87086; 87088; 93005; 93306; 96365; 96367; 96374; 96375; 96376; 99285; A9270; G0378; G0379; J0360; J0456; J0696; J1940; Q9967

== ENCOUNTER 2022-05-01 14:35 | Emergency (ER) | payer OTHER, SELFPAY ==
[2022-05-01 14:49] VITALS: BP 92/51; PULSE 73; RESP 16; TEMP 36.4; O2SAT 100
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
== END 2022-05-01 15:22 | disposition home or self-care (01) ==
PROVIDERS: Emergency Provider Nurse Practitioner Family
DX: N39.0 Urinary tract infection, site not specified (principal)
CPT/HCPCS: 81003; 87086; 99213; G0463

== ENCOUNTER 2022-10-09 18:22 | Emergency (ER) | payer OTHER, SELFPAY ==
[2022-10-09 18:39] VITALS: BP 97/57; PULSE 72; RESP 16; TEMP 36.7; O2SAT 100
[2022-10-09 18:49] VITALS: BP 97/57; PULSE 72; RESP 16; TEMP 36.7; O2SAT 100
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
== END 2022-10-09 19:11 | disposition home or self-care (01) ==
PROVIDERS: Emergency Provider Nurse Practitioner; PCP Family Medicine
DX: H60.501 Unspecified acute noninfective otitis externa, right ear (principal); K21.9 Gastro-esophageal reflux disease without esophagitis
CPT/HCPCS: 99213; G0463

== ENCOUNTER 2023-01-27 10:40 | Emergency (ER) | payer OTHER, SELFPAY ==
[2023-01-27 10:53] VITALS: BP 113/76; PULSE 98; RESP 16; TEMP 36.9; O2SAT 100
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
== END 2023-01-27 11:23 | disposition home or self-care (01) ==
PROVIDERS: Emergency Provider Nurse Practitioner Family
DX: J06.9 Acute upper respiratory infection, unspecified (principal); Z20.822 Contact with and (suspected) exposure to COVID-19; F12.90 Cannabis use, unspecified, uncomplicated; K21.9 Gastro-esophageal reflux disease without esophagitis
CPT/HCPCS: 87081; 87426; 87804; 87880; 99213; C9803; G0463

== ENCOUNTER 2023-05-10 18:50 | Emergency (ER) | payer OTHER, SELFPAY ==
[2023-05-10 18:55] VITALS: BP 108/80; PULSE 80; RESP 16; TEMP 36.6; O2SAT 99
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
== END 2023-05-10 19:30 | disposition home or self-care (01) ==
PROVIDERS: Emergency Provider Nurse Practitioner
DX: J06.9 Acute upper respiratory infection, unspecified (principal); Z20.822 Contact with and (suspected) exposure to COVID-19; F12.90 Cannabis use, unspecified, uncomplicated; K21.9 Gastro-esophageal reflux disease without esophagitis
CPT/HCPCS: 87426; 87804; 99213; G0463

== ENCOUNTER 2023-05-18 16:09 | Emergency (ER) | payer OTHER, SELFPAY ==
[2023-05-18 16:17] VITALS: BP 105/75; PULSE 71; RESP 16; TEMP 36.8; O2SAT 99
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
== END 2023-05-18 17:24 | disposition home or self-care (01) ==
PROVIDERS: Emergency Provider Registered Nurse; PCP Family Medicine
DX: J06.9 Acute upper respiratory infection, unspecified (principal); J02.9 Acute pharyngitis, unspecified; K21.9 Gastro-esophageal reflux disease without esophagitis
CPT/HCPCS: 87081; 87880; 99213; G0463